=== PATIENT | male | born 1990 | race Caucasian/White ===

== ENCOUNTER 2024-04-01 21:21 | Emergency (ER) | payer OTHER, SELFPAY ==
[2024-04-01 21:23] VITALS: BP 121/68; PULSE 73; RESP 24; TEMP 37.3; O2SAT 95; BMI 23.0
[2024-04-01 22:46] LABS: PCR FLU A POSITIVE PCR FLU A (Negative); PCR FLU B Negative PCR FLU B (Negative); PCR RSV Negative PCR RSV (Negative); SARS PCR* Negative SARS-CoV-2 (Negative)
--- NOTE | 2024-04-01 23:37 | CRLHL7_ITS ---
For Patients: As a result of the Cures Act, medical imaging exams and procedure reports are released immediately into your electronic medical record. You may view this report before your referring provider. If you have questions, please contact your health care provider. INDICATION: Ill, influenza. TECHNIQUE: Chest 1 view. COMPARISON: None. FINDINGS: Cardiovascular and mediastinum: Heart size and vasculature are normal in caliber and appearance. Lungs and pleural spaces: Lungs are clear. No pleural effusion, or pneumothorax. Bones and soft tissues: Unremarkable for age. IMPRESSION: No evidence of an acute pulmonary process. Dictated by Arley Garcia MD @ 04/01/2024 11:59:52 PM (Electronically Signed)
--- NOTE | 2024-04-01 23:37 | ED_ITS ---
HPI - General Adult General Time Seen by Provider: 23:37 Date Seen: 04/01/24 Chief complaint: Cough Stated complaint: chest pain, cough, dizzy Time Seen by Provider: 04/01/24 23:33 Source: patient and RN notes reviewed Mode of arrival: ambulatory Limitations: no limitations History of Present Illness HPI narrative: This 33-year-old male is coming in with illness that started last Friday. He had headache, coughing, did have nausea and vomiting with this as well as fevers. He was sick through the weekend, felt better on Friday but yesterday he started becoming quite ill again, he is having chills, fevers, coughing. His cough is harsh and problematic, he is coughing to the point that it hurts to breathe, hurts to cough, his chest is hurting from coughing so much. He is feeling dizzy, has had ongoing nausea vomiting, is not keeping water down now. He has a headache now. They have a 5-month-old at home, Mom is not but baby is not sick. Mom was sick herself recently. This is patient's fiancee. He last took Aleve this morning. He denies any chronic medical issues, no asthma. Related Data Previous Rx's ?Medication ?Instructions ?Recorded ondansetron 4 mg disintegrating 4 mg PO Q6H PRN nausea and 04/02/24 tablet vomiting #10 tabs Allergies Allergy/AdvReac Type Severity Reaction Status Date / Time No Known Drug Allergies Allergy Verified 04/01/24 21:30 Review of Systems Status of ROS: Reports: 6 or more systems reviewed and unremarkable except as noted in History and below Exam Const: Vital Signs, click to edit/add: Vital Signs - 24 hr 04/01/24 21:23 Temperature 99.1 F Pulse Rate [Right Pulse Oximeter] 73 Respiratory Rate 24 Blood Pressure [Ri ght Upper Arm] 121/68 Pulse Oximetry 95 Oxygen Delivery Me thod Room Air 33-year-old male he is shivering on the bed, moaning, has a harsh cough. Cheeks are flushed. He will open his eyes, pupils equal round reactive, sclera clear. Oropharynx with dry mucosa but no exudates or erythema, lips are dry and cracked. His speech is normal. Neck supple, no masses, good range of motion. Patient is able to sit up, do think a hear some crackles on the left lower half of his chest wall on auscultation posteriorly. There is no wheezing, good air entry elsewhere, no tachypnea, no accessory muscle use. CV regular rate and rhythm, no murmur. Abdomen is soft, nontender, nondistended. Documenting provider has reviewed patient's vital signs: yes Course Course ED Course: Patient has tested positive for influenza a and have reviewed that with them. Did apologize for the wait, there is a significant weight in the ER. He certainly looks dry, do worry that he is maybe developed secondary complications such is bacterial pneumonia. Will get a chest x-ray and a CBC. We will give him 500 mL IV fluid and 4 mg IV Zofran for symptom control. Due to fluid shortage she will limit the IV fluids today to this. Reevaluation(s) Time of Reevaluation #1: 00:21 Reevaluation #1: Have reviewed the chest x-ray is normal, provided a copy. His CBC is indicative of ongoing viral infection. There is no indication for antibiotics at this time, he is well out of the treatment window for Tamiflu. I will send in Zofran to the pharmacy for them for ongoing nausea or vomiting. Tylenol ibuprofen, fluids, close follow-up if not improving over the next couple of days. Vital Signs Vital signs: Initial Vital Signs Temperature 99.1 F 04/01/24 21:23 Temperature Source Temporal Artery Scan 04/01/24 21:23 Pulse Rate 73 04/01/24 21:23 Pulse Rhythm Regular 04/01/24 21:23 Respiratory Rate 24 04/01/24 21:23 Blood Pressure 121/68 04/01/24 21:23 Blood Pressure Mean 85 04/01/24 21:23 Blood Pressure Position Sitting 04/01/24 21:23 Pulse Oximetry 95 04/01/24 21:23 Oxygen Delivery Method Room Air 04/01/24 21:23 Vital Signs Temperature 99.1 F 04/01/24 21:23 Pulse Rate 73 04/01/24 21:23 Respiratory Rate 24 04/01/24 21:23 Blood Pressure 121/68 04/01/24 21:23 Pulse Oximetry 95 04/01/24 21:23 Oxygen Delivery Method Room Air 04/01/24 21:23 Temperature 99.1 F 04/01/24 21:23 Pulse Rate 73 04/01/24 21:23 Respiratory Rate 24 04/01/24 21:23 Blood Pressure 121/68 04/01/24 21:23 Pulse Oximetry 95 04/01/24 21:23 Oxygen Delivery Method Room Air 04/01/24 21:23 Medications Administered Medications: Generic Name Dose Route Start Last Admin Trade Name Narendra PRN Reason Stop Dose Admin Sodium Chloride 500 mls @ 500 mls/hr 04/01/24 23:42 04/01/24 23:49 0.9 % Sodium Chloride 500 Ml IV 04/02/24 00:41 500 mls/hr .Q1H ONE Administration Medical Decision Making Lab Data Lab results reviewed: Yes I reviewed the patient's lab results Labs: Lab Results 04/01/24 04/01/24 Range/Units 21:30 23:53 WBC 4.42 L (4.50-11.00) K/uL RBC 5.19 (4.30-5.90) m/uL Hgb 14.9 (13.5-17.5) gm/dL Hct 43.4 (37.0-53.0) % MCV 84 (80-100) fL MCH 29 (26-34) pg MCHC 34 (32-36) gm/dL RDW Coeff of [place] 12.7 (11.5-15.5) % Plt Count 225 (140-440) K/uL Neut % (Auto) 73.1 H (42.0-72.0) % Lymph % (Auto) 14.9 L (20-44) % [place] % (Auto) 10.4 (0.0-11.0) % Eos % (Auto) 0.9 (0.0-7.0) % Baso % (Auto) 0.2 (0.0-3.0) % Neut # (Auto) 3.20 (1.7-7.0) K/uL Lymph # (Auto) 0.70 L (0.90-2.90) K/uL [place] # (Auto) 0.50 (0.00-0.90) K/UL Eos # (Auto) 0.00 (0.00-0.50) K/uL Baso # (Auto) 0.00 (0.00-0.30) K/uL Abs Immat Gran (auto) 0.00 (0.00-0.30) K/uL Imm/Tot Granulo (auto) 0.5 % SARS-CoV-2 (PCR) Negative SARS-CoV-2 (Negative) Influenza Type A (PCR) POSITIVE PCR FLU A A (Negative) Influenza Type B (PCR) Negative PCR FLU B (Negative) RSV (PCR) Negative PCR RSV (Negative) Imaging Data Chest x-ray: Attestation: I have reviewed the pertinent imaging results. My impression: I do not see any acute pathology on my preliminary review. Radiologist's impression: Patient: SURENDRA FINN Facility:?[facility] [place] [facility] Patient ID:?[id number] Site Patient ID:?[id number]. Site :?[id number] Study:?XRay-Chest PORTABLE-04/01/2024 11:57:15 PM Ordering Physician:?Leonidas Morales Final Report: INDICATION: Ill, influenza. TECHNIQUE: Chest 1 view. COMPARISON: None. FINDINGS: Cardiovascular and mediastinum: Heart size and vasculature are normal in caliber and appearance. Lungs and pleural spaces: Lungs are clear. No pleural effusion, or pneumothorax. Bones and soft tissues: Unremarkable for age. IMPRESSION: No evidence of an acute pulmonary process. Dictated by Arley Garcia MD @ 04/01/2024 11:59:52 PM (Electronic Signature) Discharge Plan Discharge Clinical Impression: Influenza A Patient Disposition: Home, Self-Care Condition: Stable Instructions: Influenza (ED) Additional Instructions: It is important to stay hydrated, try to drink plenty of fluids. Tylenol 1000 mg 3 times a day baseline for fever and pain control. Can supplement with ibuprofen per bottle directions as needed for extra fever or pain control. If you are not improving in the next few days, feel you are worsening at any point or have other concerns, seek re-evaluation. Zofran can be used for further nausea or vomiting. Activity Level: Activity as Tolerated Prescriptions: New ondansetron 4 mg tablet,disintegrating 4 mg PO Q6H PRN (Reason: nausea and vomiting) Qty: 10 0RF Stand Alone Forms: [employer] Info Instructions
[2024-04-01] MEDS: 0.9 % SODIUM CHLORIDE 500 ML 500 ML IV (23:49)
[2024-04-01 23:56] LABS: Basophils Percent Auto 0.2 % (0.0-3.0); Eosinophils Percent Auto 0.9 % (0.0-7.0); Hematocrit 43.4 % (37.0-53.0); Hemoglobin* 14.9 gm/dL (13.5-17.5); Immature Granulocytes Pct Auto 0.5 %; Lymphocytes Percent Auto 14.9 % (20-44); Mean Corpuscular HGB Conc 34 gm/dL (32-36); Mean Corpuscular Hemoglobin 29 pg (26-34); Mean Corpuscular Volume 84 fL (80-100); Monocytes Percent Auto 10.4 % (0.0-11.0); Neutrophils Percent Auto 73.1 % (42.0-72.0); Platelet Count* 225 K/uL (140-440); RDW Coefficient of Variation % 12.7 % (11.5-15.5); Red Blood Count 5.19 m/uL (4.30-5.90); White Blood Count* 4.42 K/uL (4.50-11.00)
[2024-04-01 23:57] LABS: Slide Review Reflex No
== END 2024-04-02 00:52 | disposition home or self-care (01) ==
LOC: ED 04-02 00:32
PROVIDERS: Emergency Provider Family Medicine
DX: J10.1 Influenza due to other identified influenza virus with other respiratory manifestations (principal)
CPT/HCPCS: 36415; 71045; 85025; 87631; 96374; 96375; 99283; 99284; J7030